=== PATIENT | female | born 1985 | race Two or more races ===

== ENCOUNTER 2018-04-21 18:27 | Emergency (ER) | payer MEDICAID ==
[~2018-04-21] VITALS: Ht 165.1 cm; Wt 45.4 kg
--- NOTE | 2018-04-21 18:30 | NUR ---
BIB [facility] FROM HOME C/C OVERDOSED ON ADVIL 200MG PO x 150 PILLS @ APPROX 1700. PT STATES "I VOMITED @ 1800". PT VERBALIZED SUICIDAL IDEATIONS. PT AA/O X4. AMBULATED WITH STEADY GAIT TO BED. NAD. VSS. STABLE CONDITION. SKINS PINK WARM DRY. PUPILS PERRLA. AWAITING MD RAM.
[2018-04-21] MEDS ORDERED: IV NS 0.9% 1,000 ML BAG IV ONE (19:00)
[2018-04-21 19:19] LABS: BASOPHILS % (AUTO) 0.5 % (0.0-2.0); HEMATOCRIT 36 % (33-45); HEMOGLOBIN 12.4 g/dL (11.5-14.8); LYMPHOCYTES # (AUTO) 0.8 /CMM (0.8-4.8); LYMPHOCYTES % (AUTO) 21.3 % (20.0-44.0); MEAN CORPUSCULAR HEMOGLOBIN 29 PG (26.0-33.0); MEAN CORPUSCULAR HGB CONC 35 g/dl (31.0-36.0); MEAN CORPUSCULAR VOLUME 84 fL (82-100); MONOCYTES # (AUTO) 0.2 /CMM (0.1-1.30); NEUTROPHILS # (AUTO) 2.9 /CMM (1.8-8.9); NEUTROPHILS % (AUTO) 71.2 % (43.0-81.0); PLATELET COUNT (AUTO) 148 /CMM (150-450); RDW COEFFICIENT OF VARIATION 12.6 (11.5-15.0); WHITE BLOOD COUNT (AUTO) 3.9 K/uL (4.3-11.0)
[2018-04-21 19:33] LABS: INR 1.02 (0.85-1.15)
[2018-04-21 19:37] LABS: CARBON DIOXIDE 23 mmol/L (21-32); CHLORIDE 105 mmol/L (98-107); CREATININE 0.7 mg/dL (0.6-1.3); GLUCOSE 85 mg/dL (74-106); POTASSIUM 4.2 mmol/L (3.5-5.1); SODIUM SERUM 140 mmol/L (136-145); UREA NITROGEN, BLOOD 7 mg/dL (7-18)
[2018-04-21 19:44] LABS: ALANINE AMINOTRANSFERASE 13 U/L (12-78); ALCOHOL, BLOOD < 3 mg/dL (0-0); ALKALINE PHOSPHATASE 31 U/L (46-116); ASPARTATE AMINOTRANSFERASE 15 U/L (15-37); BILIRUBIN,DIRECT 0.1 mg/dL (0.0-0.2); BILIRUBIN,TOTAL 0.5 mg/dL (0.2-1.0); TOTAL PROTEIN, SERUM 7.9 g/dL (6.4-8.2)
[2018-04-21 19:45] LABS: ACETAMINOPHEN 0 ug/ml (10-30); SALICYLATE < 0.2 mg/dL (2.8-20.0)
[2018-04-21 19:46] LABS: APPEARANCE,URINE Clear (CLEAR); BILIRUBIN,URINE Negative (NEGATIVE); BLOOD, URINE Negative Ery/uL (NEGATIVE); COLOR,URINE Yellow (YELLOW); KETONES,URINE Trace (NEGATIVE); LEUKOCYTE ESTERASE ,URINE Trace (NEGATIVE); NITRITE, URINE Negative (NEGATIVE); PROTEIN,URINE Negative (NEGATIVE); UGLUCOSE Negative (NEGATIVE); UROBILINOGEN,URINE 0.2 EU/dL (0.2)
--- NOTE | 2018-04-21 19:48 | NUR ---
PT RESTING COMFORTABLY. NAD.VSS. STABLE CONDITION. AMBULATED TO BATHROOM WITH STEADY GAIT.
[2018-04-21 20:12] LABS: BACTERIA,URINE Moderate /HPF (None Seen); MUCUS,URINE Few /LPF (None Seen); RBC,URINE 0-2 /HPF (0-2); SQUAMOUS EPITHELIAL CELL,UR Many /HPF (None Seen); URINE AMORPHOUS URATE Moderate /HPF (None Seen)
[2018-04-21] MEDS ORDERED: ONDANSETRON HCL/PF 4 MG/2 ML VIAL ONE (21:05)
--- NOTE | 2018-04-21 21:08 | NUR ---
ADMINISTERED 4MG ZOFRAN PER VERBAL ORDERS MD KELLEY. POSITIVE NAUSEA AND VOMIT X1
[2018-04-21] MEDS ORDERED: ONDANSETRON HCL/PF - ER 4 MG/2 ML VIAL IV ONE (21:30)
--- NOTE | 2018-04-22 00:47 | NUR ---
PT ON CELL PHONE ON HOSP BED. NAD. [place]
--- NOTE | 2018-04-22 03:42 | NUR ---
PT CONTINUES TO REST COMFORTABLY. NAD. VSS. STABLE CONDITION
--- NOTE | 2018-04-22 03:50 | NUR ---
PSYCH EVAL AT BEDSIDE
--- NOTE | 2018-04-22 04:12 | NUR ---
Patient discharged to home in stable condition. Written and verbal after care instructions given. Patient verbalizes understanding of instruction. IV removed. Catheter intact and site benign. Pressure and 4x4 applied to site. No bleeding noted. PT AMBULATED WITH STEADY GAIT UPON DC.
[2018-04-22 04:13] VITALS: BP 122/76
== END 2018-04-22 04:16 | disposition home or self-care (01) ==
LOC: ER 18:29
DX: T39.311A Poisoning by propionic acid derivatives, accidental (unintentional), initial encounter (principal); R42 Dizziness and giddiness; R11.10 Vomiting, unspecified; R79.1 Abnormal coagulation profile; R82.99 Other abnormal findings in urine; Y92.89 Other specified places as the place of occurrence of the external cause
CPT/HCPCS: 36415; 80048-TC; 80076-TC; 80305; 81000-TC; 84703-TC; 85025-TC; 85730-TC; 87086-TC; A4606; G0480; J2405; J7030; Z7610